=== PATIENT | female | born 1950 | race Native Hawaiian/Other Pacific Islander ===

== ENCOUNTER 2019-03-21 22:58 | Emergency (ER) | payer OTHER ==
[~2019-03-21] VITALS: Ht 170.2 cm; Wt 97.1 kg
[2019-03-21 23:50] LABS: PLATELET COUNT 235 K/uL (152-353)
[2019-03-21 23:54] LABS: POTASSIUM 3.7 mmol/L (3.6-5.2)
[2019-03-22 00:19] VITALS: BP 166/88; TEMP 98.3
[2019-03-22] MEDS ORDERED: VITAMIN D22000 UNIT PO (09:27)
[2019-03-22] MEDS ORDERED: CLON0.5T36 PO (09:28)
[2019-03-22] MEDS ORDERED: LEVO0.1224 PO (09:29)
[2019-03-22] MEDS ORDERED: CALCIUM CARB500 MG PO (09:30)
[2019-03-22] MEDS ORDERED: BENAZEPRIL5 MG PO (09:31)
[2019-03-22] MEDS ORDERED: LEXAPRO10 MG PO (09:31)
[2019-03-22] MEDS ORDERED: METF500T PO (09:32)
[2019-03-22] MEDS ORDERED: DOXEPIN HCL50 MG PO (09:33)
[2019-03-22] MEDS ORDERED: GEODON60 MG PO (09:33)
[2019-03-22] MEDS ORDERED: MIRALAX3350 N1 PO (09:34)
[2019-03-22] MEDS ORDERED: SENOKOT S1 TAB PO (09:35)
[2019-03-22] MEDS ORDERED: MUCINEX PO (09:38)
[2019-03-22] MEDS ORDERED: FINGERSTIX (09:42)
== END 2019-03-22 00:19 | disposition still patient (30) ==
LOC: ED 22:58
PROVIDERS: Hospitalist
DX: F25.8 Other schizoaffective disorders (principal); Z04.6 Encounter for general psychiatric examination, requested by authority
CPT/HCPCS: 36415; 80053; 85027; 93005; 99283